=== PATIENT | male | born 1990 | race African-American/Black ===

== ENCOUNTER 2019-01-03 20:56 | Emergency (ER) | payer SELFPAY ==
[~2019-01-03] VITALS: Ht 177.8 cm; Wt 59.1 kg
[2019-01-03 20:59] VITALS: Ht 177.8 cm; Wt 59.1 kg
[2019-01-03 23:04] VITALS: BP 106/73
== END 2019-01-04 02:16 | disposition home or self-care (01) ==
LOC: D.ER 20:56
DX: S00.91XA Abrasion of unspecified part of head, initial encounter (principal); V43.52XA Car driver injured in collision with other type car in traffic accident, initial encounter; Y93.89 Activity, other specified; Y92.410 Unspecified street and highway as the place of occurrence of the external cause; S59.901A Unspecified injury of right elbow, initial encounter